=== PATIENT | female | born 1985 | race Caucasian/White ===

== ENCOUNTER 2016-05-16 12:40 | Emergency (ER) | payer MEDICAID ==
[2016-05-16] MEDS ORDERED: SODIUM CHLORIDE 0.9% 1,000 ML ONE (13:38)
== END 2016-05-16 13:51 | disposition left against medical advice (07) ==
LOC: ER 12:40
DX: R10.30 Lower abdominal pain, unspecified (principal); R11.2 Nausea with vomiting, unspecified
CPT/HCPCS: 36415; 80053; 81003; 83690; 84703; 85025

== ENCOUNTER 2016-05-23 07:38 | Emergency (ER) | payer MEDICAID ==
[2016-05-23] MEDS ORDERED: DIPHENOXYLATE/ATROP TAB 2.5 MG TAB ONE (10:28)
[2016-05-23] MEDS ORDERED: SODIUM CHLORIDE 0.9% 50 ML IV ONE ×2 (10:28→11:50)
[2016-05-23] MEDS ORDERED: PROMETHAZINE 25 MG/ML VIAL ONE ×2 (10:28→11:50)
[2016-05-23] MEDS ORDERED: SODIUM CHLORIDE 0.9% 1,000 ML ONE (10:28)
[2016-05-23] MEDS ORDERED: DIPHENHYDRAMINE 50 MG/ML VIAL ONE (11:12)
[2016-05-23] MEDS ORDERED: hydrOXYzine 25 MG TAB ONE (11:50)
== END 2016-05-23 12:15 | disposition left against medical advice (07) ==
LOC: ER 07:38
DX: R10.9 Unspecified abdominal pain (principal); F11.20 Opioid dependence, uncomplicated; Z76.5 Malingerer [conscious simulation]; D64.9 Anemia, unspecified; Z79.899 Other long term (current) drug therapy; F41.1 Generalized anxiety disorder; F32.9 Major depressive disorder, single episode, unspecified; K21.9 Gastro-esophageal reflux disease without esophagitis; Z85.038 Personal history of other malignant neoplasm of large intestine; Z85.43 Personal history of malignant neoplasm of ovary; Z85.05 Personal history of malignant neoplasm of liver
CPT/HCPCS: 36415; 80053; 81001; 83690; 84703; 85025; 96361; 96374; 96375; 96376

== ENCOUNTER 2016-05-31 10:34 | Emergency (ER) | payer MEDICAID ==
[2016-05-31] MEDS ORDERED: PROMETHAZINE 25 MG TAB ONE (11:57)
== END 2016-05-31 12:13 | disposition left against medical advice (07) ==
LOC: ER 10:34
DX: R10.9 Unspecified abdominal pain (principal); R11.2 Nausea with vomiting, unspecified; Z85.038 Personal history of other malignant neoplasm of large intestine; Z85.43 Personal history of malignant neoplasm of ovary; K21.9 Gastro-esophageal reflux disease without esophagitis; F41.1 Generalized anxiety disorder; F32.9 Major depressive disorder, single episode, unspecified
CPT/HCPCS: 81003